=== PATIENT | male | born 1970 | race Caucasian/White ===

== ENCOUNTER 2020-06-26 21:31 | Emergency (ER) | payer BC ==
[~2020-06-26] VITALS: Ht 175.3 cm; Wt 86.2 kg
[2020-06-26 21:38] VITALS: BP_SYST 157
[2020-06-26 23:00] VITALS: BP_SYST 157
== END 2020-06-26 23:00 | disposition home or self-care (01) ==
LOC: SED 21:31
DX: S93.402A Sprain of unspecified ligament of left ankle, initial encounter (principal); X50.0XXA Overexertion from strenuous movement or load, initial encounter; Y93.75 Activity, martial arts; Y92.89 Other specified places as the place of occurrence of the external cause; Y99.8 Other external cause status
CPT/HCPCS: 99283